=== PATIENT | female | born 1935 | race Caucasian/White ===

== ENCOUNTER → 2016-12-15 | Outpatient (CLI) | payer MEDICARE | END | disposition home or self-care (01) | LOC: GMA 12:41 | PROVIDERS: ATTEND Nurse Practitioner Family | DX: E03.1 Congenital hypothyroidism without goiter (principal); R35.0 Frequency of micturition; E53.8 Deficiency of other specified B group vitamins ==

== ENCOUNTER 2017-07-02 23:05 | Emergency (ER) | payer MEDICARE ==
[2017-07-02 23:21] VITALS: BP 153/89; TEMP 97.7; O2SAT 96
[2017-07-02] MEDS ORDERED: predniSONE 20 MG TAB PO ONE (23:28)
--- NOTE | 2017-07-02 23:31 | ED.PDOC ---
History of Present Illness - General Chief Complaint: Upper Extremity Injury Stated Complaint: right hand wrist pain Time Seen by Provider: 07/02/17 23:06 Source: patient Exam Limitations: no limitations - History of Present Illness Initial Comments: The patient is an 81-year-old female presenting to the emergency room with some edema and possibly some mild deep tissue bruising to the palmar aspect of her right wrist. It is mildly uncomfortable to palpation. It does not itch. It is more painful when the wrist is extended when she actively balls her fist. There is no loss of sensation. Capillary refill is preserved. She does exercises in the morning it is uncertain if she strained her wrist in the morning. She does seem to have some baseline symptoms of carpal tunnel on the right hand. There is very mild increased warmth over the area. There is no obvious underlying abscess. Skin color is more swollen and edematous rather than red and inflamed. No other areas. There is no extending erythema of the arm. Severity: mild Improving Factors: immobilization Worsening Factors: movement Associated Symptoms: denies symptoms Home Medications: Ambulatory Orders predniSONE [Prednisone] 20 mg PO DAILY #3 tab 07/02/17 Review of Systems - Review of Systems Constitutional: States: no symptoms reported EENTM: States: no symptoms reported Respiratory: States: no symptoms reported Cardiology: States: no symptoms reported Gastrointestinal/Abdominal: States: no symptoms reported Genitourinary: States: no symptoms reported Musculoskeletal: States: see HPI Skin: States: see HPI Neurological: States: no symptoms reported Endocrine: States: no symptoms reported All other Systems: No Change from Baseline Past Medical History (General) - Vaccination History Hx Tetanus, Diphtheria Vaccination: No Hx Influenza Vaccination: No - Female History Patient is a Female of Child Bearing Age (10 -59 yrs old): No - Triage Comment ED Triage Comment: bruising noted to inner rt wrist Family Medical History - Family History Father Family History: Unknown Physical Exam - Physical Exam General Appearance: Alert, Comfortable, No apparent distress Eye Exam: bilateral normal Neck: full range of motion, supple Respiratory: no respiratory distress, no accessory muscle use Cardiovascular/Chest: normal peripheral pulses, no edema Peripheral Pulses: radial,right: 2+, radial,left: 2+ Rectal Exam: deferred Extremity: normal range of motion, no pedal edema, no calf tenderness, normal capillary refill, other - see history of present illness Neurologic: 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 Skin Exam: normal color - except as per history of present illness. no evidence of laceration or puncture sites Comments: Vital Signs - 24 hr 07/02/17 23:17 Temperature 97.7 F Pulse Rate [ 78 Left] Respiratory 18 Rate Blood Pressure 153/89 [Left Arm] O2 Sat by Pulse 96 Oximetry Progress - Progress Progress: 07/02/17 23:33 the patient is an 81-year-old female presenting with an area of localized edema that is approximately 1" x 3" to the palmar aspect of her right wrist. I'm uncertain if this is a localized reaction to something such as a insect bite or if it is edema caused by deep tissue strain with resultant inflammation. I do not believe there is any infection. I do not see any skin lacerations. The patient is given a dose of prednisone here tonight and will be placed in a wrist splint. She is to take her wrist out and move it to 4 times a day to prevent it from getting stiff. She does need to watch out for any redness extending up her arm or any evidence otherwise of infection. She will be written for 3 more days of oral prednisone, which she should preferably taken the mornings. She should follow-up with her primary care doctor within the next couple of days for repeat evaluation. She likely does have some carpal tunnel at baseline in her right hand and may yet need evaluation for potential release in the future. ER warnings were given for any significant worsening. Departure - Departure Clinical Impression: Edema of both wrists ICD-10 Supporting Text: this is not of both wrists this is simply of the right wrist Disposition: Discharge to Home or Self Care Condition: Fair Departure Forms: ED Discharge - Pt. Copy, Patient Portal Self Enrollment Diet: regular diet Activity: increase activity as tolerated Referrals: Gregorio Kapoor III, MD [Primary Care Provider] - 1-2 Days Prescriptions: predniSONE [Prednisone] 20 mg PO DAILY #3 tab Home Medications: Ambulatory Orders predniSONE [Prednisone] 20 mg PO DAILY #3 tab 07/02/17 Additional Instructions: the patient is an 81-year-old female presenting with an area of localized edema that is approximately 1" x 3" to the palmar aspect of her right wrist. I'm uncertain if this is a localized reaction to something such as a insect bite or if it is edema caused by deep tissue strain with resultant inflammation. I do not believe there is any infection. I do not see any skin lacerations. The patient is given a dose of prednisone here tonight and will be placed in a wrist splint. She is to take her wrist out and move it to 4 times a day to prevent it from getting stiff. She does need to watch out for any redness extending up her arm or any evidence otherwise of infection. She will be written for 3 more days of oral prednisone, which she should preferably taken the mornings. She should follow-up with her primary care doctor within the next couple of days for repeat evaluation. She likely does have some carpal tunnel at baseline in her right hand and may yet need evaluation for potential release in the future. ER warnings were given for any significant worsening.
== END 2017-07-02 23:49 | disposition home or self-care (01) ==
LOC: ER 23:05
DX: M25.431 Effusion, right wrist (principal)

== ENCOUNTER → 2018-08-07 | Outpatient (CLI) | payer MEDICARE ==
--- NOTE | 2018-08-11 13:12 | RAD ---
EXAM DESCRIPTION: Pelvis: CR/DR/XR CLINICAL HISTORY: HIP PAIN COMPARISON: Bilateral knee radiographs on this visit. AP pelvis radiograph 04/21/2016. Subchondral sclerosis on the right acetabular facet. Minimal cortical remodeling of the femoral head. Joint space is symmetric. Enthesophytes bilateral greater trochanters. TECHNIQUE: One view FINDINGS: Marked narrowing of the left hip joint space. Subchondral sclerosis and subchondral radiolucency on the acetabular facet and femoral head with femoral head cortical remodeling, flattening of the convex surface. Hypertrophy of the superior lateral facet. Slightly progressed since the prior study. No acute bony abnormalities. IMPRESSION: Hydronephrosis left hip slightly progressed since the prior study 2 years ago. Mild arthrosis right hip also slightly progressed since the prior study. No acute bony abnormalities. Electronically signed by: Ede Bryant MD 08/11/2018 1:11 PM [facility]
--- NOTE | 2018-08-11 13:21 | RAD ---
EXAM DESCRIPTION: Knee,Left Complete CLINICAL HISTORY: 82 years FemaleKNEE PAIN COMPARISON: Radiographs of the contralateral knee and pelvis on the same visit. TECHNIQUE: 2 views left knee. FINDINGS: Lateral standing and patellar sunrise view show slight elevation of the normal position of the left patella. Superior and inferior and lateral and medial marginal spurs. Narrowing of the medial patellofemoral joint with scalloping of the subchondral bone of the medial facet. Medial and lateral trochlear spurs. No significant effusion. Arthrosis in the medial and lateral compartment. Posterior fabella versus vascular calcification. Marginal spurs on the plateau. 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 Arthrosis also suspected in the medial and lateral left knee compartments. Electronically signed by: Ede Bryant MD 08/11/2018 1:20 PM [facility]
--- NOTE | 2018-08-11 13:25 | RAD ---
EXAM DESCRIPTION: Knee,Right Complete CLINICAL HISTORY: 82 years FemaleKNEE PAIN COMPARISON: Radiographs of the left knee and pelvis on this visit. 3 views of the right knee 04/21/2016. TECHNIQUE: three views right knee. FINDINGS: Lateral standing and patellofemoral view. Superior and inferior patellar marginal spurs. Significant narrowing of the medial patellofemoral joint space with minimal scalloping of the medial patellar facet stable since the prior study. Lateral and medial trochlear and lateral mid medial patellar spurs. Posterior fabella versus vascular calcifications. Minimal irregularity of the tibial plateau surface seen on the lateral view. Small suprapatellar effusion. No acute bony abnormality. IMPRESSION: No significant change in the patellofemoral compartment or the appearance of the femoral and tibial articular surface on the lateral view since the prior study in April 2016. Electronically signed by: Ede Bryant MD 08/11/2018 1:23 PM [facility]
== END ==
LOC: RAD 07:30
PROVIDERS: ATTEND Orthopaedic Surgery
DX: M25.561 Pain in right knee (principal); M25.562 Pain in left knee; M25.551 Pain in right hip; M25.552 Pain in left hip; M16.12 Unilateral primary osteoarthritis, left hip

== ENCOUNTER → 2018-11-13 | Outpatient (CLI) | payer MEDICARE ==
--- NOTE | 2018-11-13 16:24 | MRI ---
EXAM DESCRIPTION: Brain w/oContrast CLINICAL HISTORY: DIZZINESS COMPARISON: None available TECHNIQUE: Non contrast MRI of the brain is performed according to our usual protocol including multiplanar multi sequence technique. FINDINGS: Sagittal T1 images show intact corpus callosum. Normal pituitary gland with normal T1 appearance of the gary and medulla and upper cervical cord. Normal signal intensity within the clivus and calvarium. Axial T2 fat sat images reveal preservation of intracranial vascular flow voids. Normal mancia matter T2 signal intensity. Few T2 hyperintensities. Normal ventricles with normal gyral and sulcal fold pattern for age. The globes appear intact and symmetrical. No abnormal fluid signal in the paranasal sinuses, tympanic cavities or mastoid air cells. Axial flair images show few tiny foci of increased signal intensity in the central white matter consistent with mild chronic microvascular ischemic changes.. Diffusion weighted images are negative for focal intense increased signal intensity in the brain parenchyma to suggest restricted diffusion. ADC mapping is negative. Axial T1 images show normal mancia-white matter differentiation. No high signal intensity hemorrhagic lesion of the brain parenchyma. No subdural hematoma. Thin slice axial T1 images through the temporal bones show normal symmetrical internal auditory canals. No intracanalicular mass or cerebellopontine angle mass. Coronal T1 images through the skull base confirm the findings. High-resolution thin slice axial T2 fiesta images through the internal auditory canals show normal 8th nerves. Normal signal intensity within the inner ear structures. No posterior fossa lesion or cerebellopontine angle mass. No vascular anomalies. Axial susceptibility weighted images are negative for focal signal loss to suggest abnormal brain parenchymal calcification or hemosiderin deposition. IMPRESSION: Mild chronic microvascular ischemic changes in cerebral white matter. No acute intracranial pathologic process. Electronically signed by: Sergio Askew MD 11/13/2018 4:21 PM [facility]
== END ==
LOC: MRI 10:05
PROVIDERS: ATTEND Family Medicine
DX: R41.89 Other symptoms and signs involving cognitive functions and awareness (principal)

== ENCOUNTER 2019-11-29 | Emergency (ER) | payer MEDICARE | END 2019-11-29 13:25 | disposition home or self-care (01) | DX: S61.252A Open bite of right middle finger without damage to nail, initial encounter (principal); W59.11XA Bitten by nonvenomous snake, initial encounter; Y92.9 Unspecified place or not applicable | CPT/HCPCS: 90471; 90715; J7512 ==